=== PATIENT | male | born 1990 | race Caucasian/White ===

== ENCOUNTER 2018-07-31 20:26 | Emergency (ER) | payer BC ==
[2018-07-31] MEDS ORDERED: Sodium Chloride 0.9% 1,000 ML IV ONE ×2 (20:47→21:35)
[2018-07-31] MEDS ORDERED: Ondansetron 4 MG/2 ML SDV IVPUSH ONE (20:47)
[2018-07-31] MEDS ORDERED: Sodium Chloride 0.9% 10 ML Syringe FLUSH PRN (20:47)
--- NOTE | 2018-07-31 21:01 | EDM.PDOC ---
ED HPI GENERAL MEDICAL PROBLEM - General Chief Complaint: General Stated Complaint: DEHYDRATED?? Time Seen by Provider: 07/31/18 20:35 Source of Information: Reports: Patient History Limitations: Reports: No Limitations - History of Present Illness INITIAL COMMENTS - FREE TEXT/NARRATIVE: Patient is a 28-year-old gentleman who presents to the emergency department this evening with a complaint of nausea, vomiting, body aches and muscle cramping. 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 Patient states that early this afternoon he started feeling little weak and at about 5 p.m. today he had 2 episodes of vomiting. Patient states that symptoms continued to worsen, so decided to present to the ER. Patient denies chest pain, shortness of breath, fever, consuming energy drinks, blood in vomitus, abdominal pain, or history of heat exhaustion or heat stroke. Onset: Today Duration: Hour(s): Location: Reports: Generalized Quality: Reports: Ache, Other (Muscle Cramping) Severity: Mild Improves with: Reports: None Worsens with: Reports: Movement Context: Reports: Activity Associated Symptoms: Reports: Nausea/Vomiting. Denies: Chest Pain, Fever/Chills , Headaches, Rash, Shortness of Breath, Syncope Headache Pain Score (Numeric/FACES): 3 - Related Data Allergies Allergy/AdvReac Type Severity Reaction Status Date / Time No Known Allergies Allergy Verified 07/31/18 20:54 Home Meds: Home Meds Calcium Carbonate [Calcium] 500 mg PO DAILY PRN 07/31/18 [History] Fish Oil/Kenes[place]-3 Fatty Acids [Fish Oil 1,000 MG] 1 each PO DAILY 07/31/18 [ History] Multivitamin [Multivitamins] 1 cap PO DAILY 07/31/18 [History] ED ROS GENERAL - Review of Systems Review Of Systems: ROS reveals no pertinent complaints other than HPI. Constitutional: Reports: Fatigue HEENT: Reports: No Symptoms Respiratory: Reports: No Symptoms Cardiovascular: Reports: No Symptoms Endocrine: Reports: No Symptoms GI/Abdominal: Reports: Nausea, Vomiting. Denies: Abdominal Pain : Reports: No Symptoms Musculoskeletal: Reports: Muscle Pain, Muscle Stiffness (Upper and lower extremities) Skin: Reports: No Symptoms Neurological: Reports: No Symptoms Psychiatric: Reports: No Symptoms Hematologic/Lymphatic: Reports: No Symptoms Immunologic: Reports: No Symptoms ED EXAM, GENERAL - Physical Exam Exam: See Below Exam Limited By: No Limitations General Appearance: Alert, WD/WN, No Apparent Distress Eye Exam: Bilateral Eye: Normal Inspection Nose: Normal Inspection, Normal Mucosa, No Blood Throat/Mouth: Normal Inspection, Normal Oropharynx, No Airway Compromise Head: Atraumatic, Normocephalic Neck: Normal Inspection, Supple, Non-Tender, Full Range of Motion Respiratory/Chest: No Respiratory Distress, Lungs Clear, Normal Breath Sounds, No Accessory Muscle Use, Chest Non-Tender Cardiovascular: Normal Peripheral Pulses, Regular Rate, Rhythm, No Murmur, No Rub GI/Abdominal: Normal Bowel Sounds, Soft, Non-Tender, No Organomegaly, No Distention, No Abnormal Bruit, No Mass Back Exam: Normal Inspection. No: CVA Tenderness (L), CVA Tenderness (R) Extremities: Normal Inspection, No Pedal Edema, Leg Pain Neurological: Alert, Oriented, CN II-XII Intact, Normal Cognition, No Motor/ Sensory Deficits Psychiatric: Normal Affect, Normal Mood Skin Exam: Warm, Dry, Intact, Normal Color, No Rash Lymphatic: No Adenopathy Course - Vital Signs Last Recorded V/S: Last Vital Signs Temp 98.6 F 07/31/18 20:49 Pulse 81 07/31/18 20:49 Resp 16 07/31/18 20:49 BP 152/81 H 07/31/18 20:49 Pulse Ox 99 07/31/18 20:49 - Orders/Labs/Meds Orders: Active Orders 24 hr Category Date Time Status Peripheral IV Care [RC] . DIRECTED Care 07/31/18 20:47 Active UA W/BAILEY RFLX IF INDICATED [URIN] Stat Lab 07/31/18 21:45 Ordered Sodium Chloride 0.9% @ 999 MLS/HR (1000ml) Med 07/31/18 21:35 Ordered Sodium Chloride 0.9% [Normal Saline] 1,000 ml IV .BOLUS Sodium Chloride 0.9% [Saline Flush] Med 07/31/18 20:47 Ordered 10 ml FLUSH Q8HR PRN Peripheral IV Insertion Adult [OM.PC] Routine Oth 07/31/18 20:47 Ordered Medication Orders Sodium Chloride (Normal Saline) 1,000 mls @ 999 mls/hr IV .BOLUS ONE Stop: 07/31/18 22:35 Last Admin: 07/31/18 22:03 Dose: 999 mls/hr Sodium Chloride (Saline Flush) 10 ml FLUSH Q8HR PRN PRN Reason: keep vein open Labs: Laboratory Tests 07/31/18 07/31/18 Range/Units 20:45 20:45 WBC 13.25 H (5.00-10.00) 10^3/uL RBC 4.89 (4.50-6.00) 10^6/uL Hgb 15.2 (13.0-17.0) g/dL Hct 41.6 (40.0-52.0) % MCV 85.1 (82.0-92.0) fL MCH 31.1 H (27.0-31.0) pg MCHC 36.5 H (32.0-36.0) g/dL RDW 11.7 (11.5-14.5) % Plt Count 260 (150-400) 10^3/uL MPV 8.7 (7.4-10.4) fL Immature Gran % (Auto) 0.2 (0.0-5.0) % Neut % (Auto) 73.3 H (50.0-70.0) % Lymph % (Auto) 15.9 L (20.0-40.0) % Warrick % (Auto) 10.1 H (2.0-8.0) % Eos % (Auto) 0.3 L (1.0-3.0) % Baso % (Auto) 0.2 (0.0-1.0) % Immature Gran # (Auto) 0.03 (0.00-0.50) 10^3/uL Neut # (Auto) 9.70 H (2.50-7.00) 10^3/uL Lymph # (Auto) 2.11 (1.00-4.00) 10^3/uL Warrick # (Auto) 1.34 H (0.10-0.80) 10^3/uL Eos # (Auto) 0.04 L (0.10-0.30) 10^3/uL Baso # (Auto) 0.03 (0.00-0.10) 10^3/uL Sodium 127 L (136-145) mmol/L Potassium 3.1 L (3.3-5.3) mmol/L Chloride 90 L (98-115) mmol/L Carbon Dioxide 24.0 (21.0-32.0) mmol/L Anion Gap 16.1 H (5-15) mmol/L BUN 22 (6-25) mg/dL Creatinine 0.95 (0.51-1.17) mg/dL Est Cr Clr Drug Dosing 116.80 mL/min Estimated GFR (MDRD) > 60 mL/min Glucose 102 H (75 - 99) mg/dL Calcium 8.7 (8.7-10.3) mg/dL Total Bilirubin 1.0 (0.2-1.0) mg/dL AST 24 (15-37) U/L ALT 37 (12-78) U/L Alkaline Phosphatase 72 (46-116) IU/L Creatine Kinase 156 (26-276) U/L Total Protein 7.4 (6.4-8.2) g/dL Albumin 4.11 (3.00-4.80) g/dL Meds: Medications Generic Name Dose Route Start Last Admin Trade Name Adiel PRN Reason Stop Dose Admin Sodium Chloride 1,000 mls @ 999 mls/hr 07/31/18 21:35 07/31/18 22:03 Normal Saline IV 07/31/18 22:35 999 mls/hr .BOLUS ONE Administration Sodium Chloride 10 ml 07/31/18 20:47 Saline Flush FLUSH Q8HR PRN keep vein open Discontinued Medications Generic Name Dose Route Start Last Admin Trade Name Adiel PRN Reason Stop Dose Admin Sodium Chloride 1,000 mls @ 999 mls/hr 07/31/18 20:47 07/31/18 20:59 Normal Saline IV 07/31/18 21:47 999 mls/hr .BOLUS ONE Administration Ondansetron HCl 4 mg 07/31/18 20:47 07/31/18 21:01 Zofran IVPUSH 07/31/18 20:48 4 mg ONETIME ONE Administration Potassium Chloride 40 meq 07/31/18 21:16 07/31/18 21:55 Klor-Con M20 PO 07/31/18 21:17 40 meq ONETIME ONE Administration - Re-Assessments/Exams Free Text/Narrative Re-Assessment/Exam: 07/31/18 22:30 Patient afebrile, vital signs stable, feels much better, able to urinate and taking by mouth fluids. Family at bedside. Patient will follow-up with PCP in one to 2 days. Discussed in detail dehydration status, hypokalemia, hyponatremia, and the causes, symptoms, and management of these conditions. Departure - Departure Time of Disposition: 22:31 Disposition: Home, Self-Care 01 Condition: Good Clinical Impression: Hypokalemia, Dehydration, Muscle cramps, Hyponatremia - Discharge Information Instructions: Muscle Cramps and Spasms, Hyponatremia, [id number], Hypokalemia , Dehydration, Adult, [id number], Potassium Content of Foods Forms: ED Department Discharge, ED Return to Work/School Form Additional Instructions: Follow-up with PCP in one to 2 days. Return to emergency department sooner if symptoms continue or worsen. - My Orders Last 24 Hours: My Active Orders 07/31/18 20:47 Peripheral IV Care [RC] . DIRECTED Sodium Chloride 0.9% [Saline Flush] 10 ml FLUSH Q8HR PRN Peripheral IV Insertion Adult [OM.PC] Routine 07/31/18 21:35 Sodium Chloride 0.9% @ 999 MLS/HR (1000ml) Sodium Chloride 0.9% [Normal Saline] 1,000 ml IV .BOLUS 07/31/18 21:45 UA W/BAILEY RFLX IF INDICATED [URIN] Stat - Assessment/Plan Last 24 Hours: My Active Orders 07/31/18 20:47 Peripheral IV Care [RC] . DIRECTED Sodium Chloride 0.9% [Saline Flush] 10 ml FLUSH Q8HR PRN Peripheral IV Insertion Adult [OM.PC] Routine 07/31/18 21:35 Sodium Chloride 0.9% @ 999 MLS/HR (1000ml) Sodium Chloride 0.9% [Normal Saline] 1,000 ml IV .BOLUS 07/31/18 21:45 UA W/BAILEY RFLX IF INDICATED [URIN] Stat Assessment:: Dehydration Plan: Follow-up with PCP
[2018-07-31 21:13] LABS: ANION GAP 16.1 mmol/L (5-15); CHLORIDE,CL 90 mmol/L (98-115); SODIUM,NA 127 mmol/L (136-145)
[2018-07-31] MEDS ORDERED: Potassium Chloride 20 MEQ Tab.ER PO ONE (21:16)
== END 2018-07-31 23:10 | disposition home or self-care (01) ==
LOC: KA.ED 20:26
DX: E87.1 Hypo-osmolality and hyponatremia (principal); E86.0 Dehydration; E87.6 Hypokalemia; R25.2 Cramp and spasm; Z79.899 Other long term (current) drug therapy
CPT/HCPCS: 36415; 80053; 82550; 85025; 96361; 96374; 99284-25; A9270-GY; J2405; J7030